=== PATIENT | male | born 1965 | race Caucasian/White ===

== ENCOUNTER 2018-05-06 20:05 | Emergency (ER) | payer MEDICAID ==
[~2018-05-06] VITALS: Ht 165.1 cm; Wt 81.2 kg
[2018-05-06 20:49] VITALS: BP 156/114
[2018-05-06 22:04] LABS: BASOPHILS # (AUTO) 0.2 K/uL (0.00-0.22); BASOPHILS % (AUTO) 2.4 % (0.0-2.0); EOSINOPHILS # (AUTO) 0.3 K/uL (0-0.4); EOSINOPHILS % (AUTO) 3.8 % (0.0-4.0); HEMATOCRIT 48.6 % (36-52); HEMOGLOBIN 16.5 g/dL (12.0-18.0); LYMPHOCYTES # (AUTO) 2.5 K/uL (2.0-11.5); LYMPHOCYTES % (AUTO) 34.6 % (20.5-51.1); MEAN CORPUSCULAR HEMOGLOBIN 34 pg (27-31); MEAN CORPUSCULAR HGB CONC 34 g/dL (33-37); MEAN CORPUSCULAR VOLUME 100.4 fL (80-94); MONOCYTES # (AUTO) 1.7 K/uL (0.8-1.0); MONOCYTES % (AUTO) 23.5 % (1.7-9.3); NEUTROPHILS # (AUTO) 2.6 K/uL (1.8-7.7); NEUTROPHILS % (AUTO) 35.7 % (42.2-75.2); PLATELET COUNT (AUTO) 172 K/uL (140-450); RED BLOOD CELL COUNT(AUTO) 4.85 MIL/uL (4.20-6.10); WHITE BLOOD COUNT (AUTO) 7.1 K/uL (4.8-10.8)
[2018-05-06 22:21] LABS: ANION GAP 10.3 (8-16); CARBON DIOXIDE 30.2 mmol/L (21-32); CREATININE 0.9 mg/dL (0.7-1.3); POTASSIUM 4.5 mmol/L (3.5-5.1)
[2018-05-06 22:27] LABS: ALBUMIN 3.5 g/dL (3.4-5.0); TOTAL BILIRUBIN 0.5 mg/dL (0.0-1.0)
[2018-05-07] MEDS ORDERED: MORPHINE SULFATE 4 MG/ML SYR IM ONE (01:50)
[2018-05-07] MEDS ORDERED: HYDROcodone/APAP 5/325 MG 1 TAB TAB PO ONE (02:35)
[2018-05-07 02:50] VITALS: BP 137/91
== END 2018-05-07 02:52 | disposition home or self-care (01) ==
LOC: MED 20:05
DX: R10.11 Right upper quadrant pain (principal); R07.89 Other chest pain; R06.02 Shortness of breath
CPT/HCPCS: 36415; 80053; 81002; 83690; 85025; 96372; 99283; J2270

== ENCOUNTER 2019-07-23 15:38 | Emergency (ER) | payer MEDICAID ==
[~2019-07-23] VITALS: Ht 165.1 cm; Wt 90.9 kg
[2019-07-23 15:50] VITALS: BP 144/110
[2019-07-23] MEDS ORDERED: ONDANSETRON 4 MG/2 ML VIAL IVP ONE (16:00)
[2019-07-23] MEDS ORDERED: NACL 0.9% 500 ML IV ONE (16:00)
[2019-07-23] MEDS ORDERED: MORPHINE SULFATE 4 MG/ML SYR IVP ONE ×3 (16:00→19:25)
[2019-07-23 16:30] LABS: BASOPHILS % (AUTO) 0.2 % (0.0-2.0); EOSINOPHILS # (AUTO) 0.2 K/uL (0-0.4); EOSINOPHILS % (AUTO) 2.4 % (0.0-4.0); HEMATOCRIT 48.7 % (36-52); HEMOGLOBIN 16.6 g/dL (12.0-18.0); LYMPHOCYTES # (AUTO) 1.7 K/uL (2.0-11.5); LYMPHOCYTES % (AUTO) 22.9 % (20.5-51.1); MEAN CORPUSCULAR HEMOGLOBIN 34 pg (27-31); MEAN CORPUSCULAR HGB CONC 34 g/dL (33-37); MEAN CORPUSCULAR VOLUME 99.1 fL (80-94); MONOCYTES # (AUTO) 1.4 K/uL (0.8-1.0); MONOCYTES % (AUTO) 19.3 % (1.7-9.3); NEUTROPHILS # (AUTO) 4.1 K/uL (1.8-7.7); NEUTROPHILS % (AUTO) 55.2 % (42.2-75.2); PLATELET COUNT (AUTO) 179 K/uL (140-450); RED BLOOD CELL COUNT(AUTO) 4.91 MIL/uL (4.20-6.10); RED CELL DISTRIBUTION WIDTH 13.3 % (11.6-13.7); WHITE BLOOD COUNT (AUTO) 7.4 K/uL (4.8-10.8)
--- NOTE | 2019-07-23 16:36 | NUR ---
53 Y/O MALE C/O CHEST PAIN X 1 DAY CAUSING SOB, RADIATING TO HIS RIGHT ABDOMEN AND RIGHT LOWER BACK, PT RATES PAIN 8/10. TELE MONITOR READING NSR. RESP EVEN AND UNLABORED. LUNG SOUNDS CLEAR IN BILAT LOBES. BOWEL SOUNDS NORMO ACTIVE IN ALL QUADRANTS. SKIN DRY/ COOL. AAOX4. CAP REFILL <3. PMH: CIRRHOSIS, HEP C NKA
[2019-07-23 16:46] LABS: PROTHROMBIN TIME 10.6 secs (10.8-13.4)
[2019-07-23 16:48] LABS: ALBUMIN 3.7 g/dL (3.4-5.0); ANION GAP 15.7 (8-16); CARBON DIOXIDE 24.6 mmol/L (21-32); CREATININE 0.7 mg/dL (0.6-1.3); POTASSIUM 3.3 mmol/L (3.5-5.1); TOTAL BILIRUBIN 0.8 mg/dL (0.0-1.0)
[2019-07-23] MEDS ORDERED: DICYCLOMINE HCL LIQUID 20 MG, ALUMINUM HYD/MAG/SIMETHICONE 30 ML, LIDOCAINE VISCOUS 2% ... PO ONE ×3 (17:00)
[2019-07-23] MEDS ORDERED: LIDOCAINE VISCOUS 2% 20 ML UDC ONE ×2 (17:02)
[2019-07-23] MEDS ORDERED: DICYCLOMINE HCL LIQUID 10 MG/5 ML UDC ONE ×2 (17:02→17:03)
[2019-07-23] MEDS ORDERED: ALUMINUM HYD/MAG/SIMETHICONE 30 ML UDC ONE ×2 (17:02→17:03)
[2019-07-23] MEDS ORDERED: ASPIRIN 325 MG TAB PO ONE (17:30)
--- NOTE | 2019-07-23 18:42 | NUR ---
PT RESTING IN BED. STATES PAIN IS RELIEVED. RESP EVEN AND UNLABORED. VSS. ALL NEEDS MED AT THIS TIME
--- NOTE | 2019-07-23 19:12 | NUR ---
SBAR GIVEN TO LO RN.
[2019-07-23 22:30] VITALS: BP 145/78
--- NOTE | 2019-07-24 00:20 | NUR ---
Patient discharged with v/s stable. Written and verbal after care instructions given and explained. Patient verbalized understanding. Ambulatory with steady gait. VSS. All questions addressed prior to discharge. Advised to follow up with PMD.
== END 2019-07-24 00:20 | disposition home or self-care (01) ==
LOC: MED 15:38
DX: R07.89 Other chest pain (principal); R10.9 Unspecified abdominal pain; F10.129 Alcohol abuse with intoxication, unspecified; R06.02 Shortness of breath; Z86.19 Personal history of other infectious and parasitic diseases
CPT/HCPCS: 36415; 71045; 71260; 74177; 80053; 83880; 84484; 85025; 85610; 85730; 93005; 96374; 96375; 96376; 99285; G0482; J2270; J2405; J7030; Q0092; Q9967